=== PATIENT | female | born 1990 | race African-American/Black ===

== ENCOUNTER 2017-06-04 04:41 | Emergency (ER) | payer SELFPAY ==
[~2017-06-04] VITALS: Ht 162.6 cm; Wt 101.2 kg
[2017-06-04 04:46] VITALS: BP 138/84
== END 2017-06-04 07:00 | disposition left against medical advice (07) ==
LOC: EME 04:41
DX: L50.9 Urticaria, unspecified (principal); Z53.21 Procedure and treatment not carried out due to patient leaving prior to being seen by health care provider